=== PATIENT | male | born 1955 | race Caucasian/White ===

== ENCOUNTER → 2018-03-19 17:10 | Outpatient (CLI) | payer OTHER, SELFPAY ==
[2018-03-19 18:06] LABS: Anion Gap 7 (5-15); BUN 24 mg/dL (7-18); BUN/Creat Ratio 22.4 RATIO (10-20); Calcium,Total 8.6 mg/dL (8.5-10.1); Chloride 104 mmol/L (98-107); Creatinine, Serum 1.07 mg/dL (0.70-1.30); EST Glomerular Filtration Rate 74 mL/min (>60); Est Glom Filt Rate - Afr Amer 89 mL/min (>60); Glucose 98 mg/dL (74-106); Potassium 4.1 mmol/L (3.5-5.1); Sodium Level 139 mmol/L (136-145)
== END ==
PROVIDERS: Visit Provider Family Medicine
DX: I50.9 Heart failure, unspecified (principal)
CPT/HCPCS: 36415; 80048

== ENCOUNTER → 2018-10-22 14:49 | Outpatient (CLI) | payer SELFPAY ==
[2018-10-06 16:10] VITALS: BMI 32.9
--- NOTE | 2018-10-22 14:52 | ECHOD_ITS ---
Reason For Study: dyspnea/SOB Procedure This was a 2D Doppler, Color Flow transthoracic echocardiogram. The study was technically difficult. Exam performed in department. Left Ventricle Normal LV size. Left ventricular systolic function is normal. The estimated ejection fraction is 60 %. Stage 1 diastolic dysfunction. No regional wall motion abnormalities noted. Right Ventricle Normal RV size. Normal systolic function. Atria The left atrium is moderately enlarged. Normal right atrium. Mitral Valve Normal mitral valve. Tricuspid Valve Normal tricuspid valve. Mild tricuspid valve insufficiency. Pulmonary artery systolic pressure is 20 mmHg. Aortic Valve Normal aortic valve. Pulmonic Valve Normal pulmonic valve. Great Vessels Normal aortic root. The pulmonary artery is normal size. Normal inferior vena cava. Pericardium/Pleural No pericardial effusion. MMode/2D Measurements & Calculations LVIDd: 5.5 cm IVSd: 1.2 cm Ao root diam: 3.4 cm LVIDs: 4.1 cm LVPWd: 1.3 cm RVDd: 3.9 cm FS: 25.9 % LAV(MOD-bp): 80.5 ml LA A4 area: 23.9 cm2 LA dimension(2D): 3.9 cm LAV(MOD-bp) Indexed: 35.3 ml/m2 LAV(MOD-sp2): 72.3 ml LAV(MOD-sp4): 72.7 ml RA A4 area: 18.4 cm2 Doppler Measurements & Calculations MV E max alok: 68.8 cm/sec Lat Peak E' Alok: 10.2 cm/sec Med Peak E' Alok: 7.1 cm/sec MV A max alok: 81.6 cm/sec E/E' lat: 6.8 E/E' med: 9.6 MV E/A: 0.84 Ao V2 max: 132.9 cm/sec LV V1 max: 98.4 cm/sec PA V2 max: 153.9 cm/sec Ao max P.1 mmHg LV V1 max P.9 mmHg PA V2 mean: 123.8 cm/sec PA V2 VTI: 45.0 cm TR max alok: 202.1 cm/sec TR max P.3 mmHg Interpretation Summary Normal LV size. Left ventricular systolic function is normal. The estimated ejection fraction is 60 %. Stage 1 diastolic dysfunction. Pulmonary artery systolic pressure is 20 mmHg. Ordering Physician: Gee Tilley Referring Physician: Carolyn Gatica Performed By: Tracy Alvares RDCS, RVT
== END ==
PROVIDERS: Referring Provider Internal Medicine Cardiovascular Disease; Visit Provider Internal Medicine Cardiovascular Disease
DX: I50.22 Chronic systolic (congestive) heart failure (principal)
CPT/HCPCS: 93306

== ENCOUNTER → 2020-09-06 09:56 | Outpatient (CLI) | payer OTHER, SELFPAY ==
[2020-08-31 15:27] VITALS: BMI 34.8
--- NOTE | 2020-09-06 13:01 | STRESSREP ---
Stress Test Report Exercise stress test. 65-year-old with a history of atrial fibrillation. Stress protocol: Resting EKG demonstrates sinus bradycardia with a rate of 51 bpm normal intervals are noted resting blood pressure is 116/78 mmHg. The patient exercised according to the regular Mike protocol for a total duration of 5 minutes. The maximum heart rate attained was 110 bpm which was 71% of max impacted heart rate the maximum workload was 7 metabolic equivalents. At rest there were no ST or T wave changes noted to suggest ischemia at peak exercise upsloping ST changes were noted with no meet the criteria for ischemia. No clinical angina was noted. The peak blood pressure was 160/82 mmHg. Conclusion: Exercise stress test with no EKG criteria for ischemia at a moderate workload. Good functional capacity.
== END ==
PROVIDERS: PCP Family Medicine; Referring Provider Internal Medicine Cardiovascular Disease; Visit Provider Internal Medicine Cardiovascular Disease
DX: R07.9 Chest pain, unspecified (principal)
CPT/HCPCS: 93017

== ENCOUNTER → 2022-08-26 | Outpatient (CLI) | payer OTHER, SELFPAY | END | disposition home or self-care (01) | LOC: PSN 08:58 | PROVIDERS: PCP Family Medicine; Visit Provider Nurse Practitioner Family | DX: I48.0 Paroxysmal atrial fibrillation (principal); I50.32 Chronic diastolic (congestive) heart failure; R00.2 Palpitations; R07.89 Other chest pain | CPT/HCPCS: 93225; 93226 ==

== ENCOUNTER → 2025-03-22 | Outpatient (CLI) | payer OTHER, SELFPAY ==
[2025-03-22 17:56] LABS: PSA,Total- Diagnostic 7.38 ng/mL (0.00-4.00)
== END | disposition home or self-care (01) ==
LOC: LAB 15:46
PROVIDERS: PCP Family Medicine; Referring Provider Urology; Visit Provider Urology
DX: C61 Malignant neoplasm of prostate (principal)
CPT/HCPCS: 36415; 84153